=== PATIENT | male | born 1985 | race Caucasian/White ===

== ENCOUNTER 2016-11-25 08:26 | Emergency (ER) | payer MEDICAID ==
[~2016-11-25] VITALS: Ht 160 cm; Wt 78.9 kg
[~2016-11-25 08:26] MED LIST: ERYT1OIN6 BOTH EYES; TOBR5DRO2 BOTH EYES
[2016-11-25 08:31] VITALS: Ht 160 cm; Wt 78.9 kg
[2016-11-25] MEDS ORDERED: FEXO180T61 PO (08:53)
[2016-11-25] MEDS ORDERED: FLUT9.9S NASAL (08:53)
[2016-11-25] MEDS ORDERED: IBUP-1542 PO (08:53)
--- NOTE | 2016-11-25 09:25 | ERD ---
ER Documentation Chief Complaint Date/Time DATE: 11/25/16 TIME: 09:22 Chief Complaint seasonal allergy, itchy eyes, stuffy noise HPI This is a 31-year-old male presents to the ER with runny nose, sneezing, itchy eyes for the last year. 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 He denies any trauma. He denies any chest pain or shortness of breath. He denies any fevers or chills. He denies any sore throat or ear pain. His eyes are not red and he does not have any discharge. ROS 12 point review of systems was done, all negative except per HPI. Medications Home Meds Active Scripts Ibuprofen* (Motrin*) 600 Mg Tab, 600 MG PO Q6, #30 TAB Prov:ZACHARY LAURENT 11/25/16 Fexofenadine Hcl* (Barbara*) 180 Mg Tablet, 180 MG PO DAILY, #30 TAB Prov:ZACHARY LAURENT 11/25/16 Fluticasone Propionate (Flonase Allergy Relief) 9.9 Ml Ariton.susp, 2 SPRAY NASAL DAILY, #1 BOTTLE TO EACH NOSTRIL Prov:ZACHARY LAURENT 11/25/16 Tobramycin-Dexamethasone* (TobraDex* ST Eye Drops) 0.3%-0.05% - 5 Ml Drops.susp , 1 DROP BOTH EYES TID for 10 Days, EA Prov:KASSIE MURILLO 08/16/15 Erythromycin (Erythromycin Opth) 3.5 Gm Oint..gm., 1 APPLIC BOTH EYES p for 7 Days, TUB Prov:KASSIE MURILLO 08/16/15 Allergies Allergies: Coded Allergies: No Known Allergy (Unverified , 11/25/16) PMhx/Soc Medical and Surgical Hx: pt denies Medical Hx, pt denies Surgical Hx Hx Alcohol Use: Yes Hx Substance Use: No Hx Tobacco Use: No Smoking Status: Never smoker Physical Exam Vitals Vital Signs Date Time Temp Pulse Resp B/P Pulse Ox O2 Delivery O2 Flow Rate FiO2 11/25/16 08:31 98.1 71 20 148/66 99 Physical Exam GENERAL: The patient is well developed and appropriate for usual state of health , in no apparent distress. HEENT: Atraumatic. Conjunctivae are pink. Pupils equal, round, and reactive to light. Extraocular muscles are grossly intact. Bilateral tympanic membranes are clear with no evidence of erythema, effusion or dulling of the light reflex. The oropharynx is clear with no erythema or exudates. Patient's septum is deviated from previous injury years ago CHEST: Clear to auscultation bilaterally. There are no rales, wheezes or rhonchi. HEART: Regular rate and rhythm. No murmurs, clicks, rubs or gallops. EXTREMITIES: Right shoulder: Patient has full range of motion of his right shoulder, negative drop arm test. NEURO: Alert and oriented. SKIN: There is no apparent rash or petechia. The skin is warm and dry. Procedures/MDM This is a 31-year-old male that presents to the ER with sneezing, runny nose, itchy eyes for the last year. This is likely allergic rhinitis. Patient states that it is worse with seasons. At this time I doubt sinusitis as he does not have any sinus tenderness or purulent nasal discharge. Suspicion for otitis media or strep throat is low. Patient's physical examination is benign. In regards to patient's right axilla pain this is likely muscular in nature. 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 Do not believe that imaging is needed at this time as he has a normal physical examination there is no history of trauma. Patient will be sent home with Flonase, Barbara, ibuprofen. Needs to follow-up with his primary care doctor within 1-2 days or return to ER sooner if symptoms worsen. My medical decision making was shared with the patient he understands and agrees with plan. Departure Diagnosis: Primary Impression: Allergic rhinitis Condition: Stable Patient Instructions: Allergic Rhinitis Additional Instructions: Llame al doctor MARCUS y jayson hannah JANAK PARA DENTRO DE 1-2 FERREIRA.Dgale a la secretaria que nosotros le instruimos hacer esta janak.Avise o llame si chiu condicin se empeora antes de la janak. Regresa aqui si peor o no mejor. ZACHARY LAURENT November 25, 2016 09:25
== END 2016-11-25 09:10 | disposition home or self-care (01) ==
LOC: FTE 08:26
DX: J30.9 Allergic rhinitis, unspecified (principal)
CPT/HCPCS: 99283

== ENCOUNTER 2017-05-05 08:42 | Emergency (ER) | payer MEDICAID ==
[~2017-05-05] VITALS: Wt 79.0 kg
[~2017-05-05 08:42] MED LIST changes: +FEXO180T61 PO; +FLUT9.9S NASAL; +IBUP-1542 PO
--- NOTE | 2017-05-05 10:04 | ERD ---
ER Documentation Chief Complaint Date/Time DATE: 05/05/17 Chief Complaint Itchy eyes, sneezing, congestion HPI The patient is a 31-year-old male who presents to the Emergency Department with complaint of itchy eyes. The patient reports that his symptoms began three days ago, with onset of ocular pruritus, mild burning and redness of both eyes. He has since developed mild eyelid edema, and has noted a small amount of crusting upon waking in the morning. He describes the discharge as watery, nonpurulent in nature. Otherwise, denies any photophobia, visual changes, diplopia, blurred vision, vision loss. Denies pain with eye movement. Denies eye pain. Denies any foreign body insertion to the eyes, or new exposures. The patient reports that over the past year, he has been experiencing intermittent runny nose, sneezing, congestion and sometimes, itchy eyes. He believes that his symptoms are secondary to underlying allergies, but has not seen his primary medical provider for evaluation. He denies any fevers, sweats, chills, nausea, vomiting , fatigue, change in appetite, periorbital swelling/erythema, chest pain, palpitations, shortness of breath, headache, cough, sore throat, neck pain, neck stiffness, new rashes. He has been placing Visine to his eyes, with no significant relief. No other complaints at this time. ROS All systems reviewed and are negative except as per history of present illness. Medications Home Meds Active Scripts Cetirizine Hcl* (Cetirizine Hcl*) 10 Mg Tablet, 10 MG PO DAILY, #30 TAB Prov:KARINA ZAFAR PA-C 05/05/17 Naphazoline Hcl/Phenir Mal (Naphcon-A Eye Drops) 15 Ml Drops, 2 DROP OP Q6-8hrs for 7 Days, #1 BOTTLE Prov:KARINA ZAFAR PA-C 05/05/17 Ibuprofen* (Motrin*) 600 Mg Tab, 600 MG PO Q6, #30 TAB Prov:ZACHARY LAURENT 11/25/16 Fexofenadine Hcl* (Barbara*) 180 Mg Tablet, 180 MG PO DAILY, #30 TAB Prov:ZACHARY LAURENT 11/25/16 Fluticasone Propionate (Flonase Allergy Relief) 9.9 Ml [employer].susp, 2 SPRAY NASAL DAILY, #1 BOTTLE TO EACH NOSTRIL Prov:ZACHARY LAURENT 11/25/16 Tobramycin-Dexamethasone* (TobraDex* ST Eye Drops) 0.3%-0.05% - 5 Ml Drops.susp , 1 DROP BOTH EYES TID for 10 Days, EA Prov:KASSIE MURILLO 08/16/15 Erythromycin (Erythromycin Opth) 3.5 Gm Oint..gm., 1 APPLIC BOTH EYES p for 7 Days, TUB Prov:SHERIE MURILLOBEL 08/16/15 Allergies Allergies: Coded Allergies: No Known Allergy (Unverified , 11/25/16) PMhx/Soc Hx Alcohol Use: Yes Hx Substance Use: No Hx Tobacco Use: No Physical Exam Vitals Vital Signs Date Time Temp Pulse Resp B/P Pulse Ox O2 Delivery O2 Flow Rate FiO2 05/05/17 08:43 98.2 71 20 147/83 99 Physical Exam GENERAL: Well-developed, well-nourished, in no acute distress. HEENT: Head is normocephalic, atraumatic. No scleral icterus. Pupils equal, round and reactive to light. Extraocular movements intact. Hyperemia, with clear water discharge, and chemosis noted. Minimal eyelid edema seen. Conjunctival injection. Pallor of nasal mucosa, with edematous nasal turbinates and clear nasal rhinorrhea. Bilaterally tympanic membranes are clear with no evidence of erythema, effusion or dulling of the light reflex. Moist mucous membranes. No pharyngeal erythema or exudates. Cobblestoning of posterior pharynx. Postnasal drip. Uvula is midline. NECK: Supple. No masses, no tenderness, no lymphadenopathy. Trachea midline. No nuchal rigidity. Full range of motion. RESPIRATORY: Lungs are clear to auscultation bilaterally. No rales, rhonchi or wheezing. Equal breath sounds. Normal expiratory effort. CARDIOVASCULAR: Regular rate and rhythm. S1 and S2 normal. GASTROINTESTINAL: Abdomen is soft, nontender, and nondistended. BACK: No midline tenderness. EXTREMITIES: No clubbing, cyanosis, or edema. Normal skin perfusion. Moving all extremities. Muscle tone is normal. No focal swelling or erythema. Distal pulses are palpable, 2+ bilaterally. Capillary refill is less than 2 seconds. NEUROLOGIC: The patient is alert, awake, and oriented x 3. No focal neurologic deficits. INTEGUMENT: Skin is clean, dry and intact. No rashes, lesions or petechiae present. PSYCHIATRIC: Appropriate; Cooperative. Procedures/MDM This is a 31-year-old male presenting to the Emergency Department with complaint of rhinorrhea, nasal congestion, and sneezing for the past year, with recent onset of itchy eyes and erythema. On physical examination the patient had pallor of nasal mucosa noted, with edematous nasal turbinates and clear nasal rhinorrhea. Conjunctival injection, hyperemia, chemosis with clear watery discharge noted. Otherwise, no periorbital swelling or erythema. No proptosis. No pain with eye movement. Posterior pharynx clear, but with cobblestoning and postnasal drip present. Lungs were clear bilaterally with no rales, rhonchi or wheezing. No tachypnea or signs of respiratory distress. Vital signs were stable. The differential diagnosis includes, but is not limited to, meningitis, upper respiratory infection,otitis media, otitis externa, mastoiditis, pneumonia, pertussis, pharyngitis, asthma, allergic rhinitis, conjunctivitis, rhinitis medicamentosa, sinusitis, bronchitis, croup, influenza. No evidence of acute sepsis, bacteremia, dehydration, meningitis or other life-threatening etiology. After rest the patient reports no new complaints. Upon my review and interpretation of the patient's presentation and overall ER course I believe the patient's symptoms are most consistent with symptoms likely secondary to allergic rhinitis and allergic conjunctivitis. Presentation not consistent with bacterial conjunctivitis, preseptal or orbital cellulitis. At this time, the patient is well-appearing. He had no physical examination evidence of pneumonia. Patient's neck was supple, with no altered mental status, no meningismus, and therefore I doubt meningitis. Oropharynx was clear, with no exudates, petechiae, no associated anterior cervical lymphadenopathy, and therefore I doubt streptococcal pharyngitis. Tympanic membranes are clear with no erythema or dulling of the light reflex. I doubt acute otitis media. At this time, the patient is in stable condition and therefore he can be discharged home with a prescription for Naphcon-A eye drops and Cetirizine and given strict return precautions for signs of deteriorating or worsening condition. The patient is advised to follow up with his primary care provider for reevaluation and further management within 2-3 days, or return to the ER sooner for any new or worsening symptoms. I shared my medical decision making and plan with the patient at length and in great detail, and he verbally understands and agrees with the plan for further observation and care as an outpatient. At the time of discharge, all questions were answered. Departure Diagnosis: Primary Impression: Allergic rhinitis Chronicity: acute Allergic rhinitis trigger: unspecified Allergic rhinitis seasonality: unspecified seasonality Qualified Code: J30.9 - Acute allergic rhinitis, unspecified seasonality, unspecified trigger Additional Impression: Allergic conjunctivitis Laterality: bilateral Qualified Code: H10.13 - Allergic conjunctivitis of both eyes Condition: Stable Patient Instructions: Allergic Rhinitis, Conjunctivitis, Non-Specific Additional Instructions: Llame al doctor MAANA y jayson hannah JANAK PARA DENTRO DE 2-3 FERREIRA.Dgale a la secretaria que nosotros le instruimos hacer esta janak.Avise o llame si chiu condicin se empeora antes de la janak. Regresa aqui si peor o no mejor. KARINA ZAFAR PA-C May 05, 2017 10:04
[2017-05-05] MEDS ORDERED: NAPH15DR OP (10:06)
[2017-05-05] MEDS ORDERED: CETI-240 PO (10:06)
== END 2017-05-05 10:36 | disposition home or self-care (01) ==
LOC: FTE 08:42
DX: J30.9 Allergic rhinitis, unspecified (principal); H10.13 Acute atopic conjunctivitis, bilateral
CPT/HCPCS: 99283

== ENCOUNTER 2017-07-18 09:54 | Emergency (ER) | END 2017-07-18 12:30 | disposition home or self-care (01) ==

== ENCOUNTER 2017-08-01 07:55 | Emergency (ER) | END 2017-08-01 12:16 | disposition home or self-care (01) ==